=== PATIENT | female | born 1955 | race Caucasian/White ===

== ENCOUNTER 2017-01-24 05:41 | Emergency (ER) | payer BC ==
[2017-01-24 05:57] VITALS: BP 112/61
--- NOTE | 2017-01-24 06:21 | EDM.PDOC ---
[id number] Complaint: L ELBOW PAIN Time Seen by Provider: 01/24/17 06:00 Source of Information: Reports: Patient History Limitations: Reports: No Limitations - History of Present Illness INITIAL COMMENTS - FREE TEXT/NARRATIVE: 61-year-old female fell onto her left elbow last evening while carrying her grandchild. She had difficulty sleeping overnight because of the pain and allow she has near normal range of motion she's having significant discomfort. Onset: Sudden Duration: Other (Last evening) Location: Reports: Upper Extremity, Left Severity: Moderate Left Elbow Pain Score (Numeric/FACES): 7 - Related Data Allergies Allergy/AdvReac Type Severity Reaction Status Date / Time No Known Allergies Allergy Verified 01/24/17 05:57 Home Meds: Home Meds Budesonide/Formoterol Fumarate [Symbicort 160-4.5 Mcg Inhaler] 1 puff IH DAILY 01/24/17 [History] Levothyroxine Sodium [Synthroid] 150 mg PO DAILY 01/24/17 [History] Venlafaxine [Venlafaxine HCl ER] 150 mg PO DAILY 01/24/17 [History] Zolpidem [Ambien] 10 mg PO DAILY 01/24/17 [History] buPROPion HCl [Bupropion Xl] 300 mg PO DAILY 01/24/17 [History] Past Medical History Respiratory History: Reports: Asthma 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: Psychiatric History: Reports: Depression Endocrine/Metabolic History: Reports: Hypothyroidism - Past Surgical History Female Surgical History: Reports: Section Social & Family History - Tobacco Use Smoking Status *Q: Never Smoker - Caffeine Use Caffeine Use: Reports: Coffee - Recreational Drug Use Recreational Drug Use: No Review of Systems - Review of Systems Review Of Systems: See Below Respiratory: Denies: Shortness of Breath GI/Abdominal: Denies: Nausea, Vomiting Skin: Reports: Other (Some bruising and ecchymosis with slight swelling over the left elbow) Neurological: Denies: Paresthesia ED EXAM, GENERAL - Physical Exam Exam: See Below Exam Limited By: No Limitations General Appearance: Alert, No Apparent Distress Respiratory/Chest: No Respiratory Distress Extremities: Other (There is some soft tissue swelling over the olecranon of the left elbow with intense tenderness to palpation of the olecranon and moderate tenderness over the radial head.) Course - Vital Signs Last Recorded V/S: Last Vital Signs Temp 97.9 F 01/24/17 05:53 Pulse 65 01/24/17 05:53 Resp 16 01/24/17 05:53 BP 112/61 01/24/17 05:53 Pulse Ox 98 01/24/17 05:53 - Orders/Labs/Meds Orders: Active Orders 24 hr Category Date Time Status Elbow Min 3V Lt [CR] Stat Exams 01/24/17 06:13 Taken - Re-Assessments/Exams Free Text/Narrative Re-Assessment/Exam: 01/24/17 06:21 A left elbow x-ray was obtained. 01/24/17 06:47 X-ray shows no fracture. Patient will be placed on cephalexin 500 3 times daily for 7 days because of the soft tissue injury, and given 6 Vicodin for extra pain control. She will keep the wound clean and use external Geraldo wrap for support. Departure - Departure Time of Disposition: 06:53 Disposition: Home, Self-Care 01 Condition: Good Clinical Impression: Contusion of elbow, left Qualifiers: Encounter type: initial encounter Qualified Code(s): S50.02XA - Contusion of left elbow, initial encounter - Discharge Information Instructions: Elbow Contusion Referrals: Branden Hoskins MD [Primary Care Provider] - Forms: ED Department Discharge Care Plan Goals: Take antibiotic as prescribed, ibuprofen or naproxen for pain and add stronger pain medication if needed. Increase activity as tolerated and recheck at any time if not healing satisfactorily. - My Orders Last 24 Hours: My Active Orders 01/24/17 06:13 Elbow Min 3V Lt [CR] Stat - Assessment/Plan Last 24 Hours: My Active Orders 01/24/17 06:13 Elbow Min 3V Lt [CR] Stat
--- NOTE | 2017-01-26 11:36 | CR ---
Left elbow There is normal alignment. There is no fracture or joint effusion. There is evidence of a soft tissu e laceration posteriorly with subcutaneous air. No radiopaque foreign body. Impression: 1. Soft tissue laceration posteriorly. 2. Negative fracture.
== END 2017-01-24 06:55 | disposition home or self-care (01) ==
LOC: JP.ED 05:41
DX: S50.02XA Contusion of left elbow, initial encounter (principal); J45.909 Unspecified asthma, uncomplicated; F32.9 Major depressive disorder, single episode, unspecified; E03.9 Hypothyroidism, unspecified; Z79.899 Other long term (current) drug therapy; Z98.890 Other specified postprocedural states; W01.0XXA Fall on same level from slipping, tripping and stumbling without subsequent striking against object, initial encounter
CPT/HCPCS: 73080-26-LT; 73080-LT; 99284

== ENCOUNTER 2020-04-24 06:25 | Day surgery (SDC) | payer MEDICARE, BC ==
[2020-04-24] MEDS ORDERED: Sodium Chloride 0.9% 1,000 ML IV SCH (07:00)
[2020-04-24] MEDS ORDERED: fentaNYL 100 MCG/2 ML SDV ONE (07:33)
[2020-04-24] MEDS ORDERED: Propofol 200 MG/20 ML SDV ONE (07:33)
[2020-04-24] MEDS ORDERED: Midazolam 1 MG/ML 2 ML SDV ONE (07:33)
[2020-04-24 08:51] VITALS: BP 111/69; PULSE 57
--- NOTE | 2020-04-25 07:25 | OR ---
DATE OF PROCEDURE: 04/24/2020 SURGEON: Cordell Suero MD PROCEDURE: Colonoscopy. FINDINGS: Sigmoid colon polyp approximately 5 mm, completely removed using hot snare wire device. COMPLICATIONS: None. BLOOD DONOR UNIT ASSISTANT: None. ANESTHETIC: MAC. PREOPERATIVE DIAGNOSIS: Screening colonoscopy. POSTOPERATIVE DIAGNOSIS: Screening colonoscopy. RISKS: Risks, benefits, alternatives, and limitations including, but not limited to, infection, bleeding, and perforation were explained to the patient and wished to proceed. DESCRIPTION OF PROCEDURE: The patient was placed in left lateral decubitus position. A digital rectal exam was performed without abnormality. Scope was introduced and advanced atraumatically to the ileocecal valve. A photo was taken. The scope was brought back to the ascending, transverse, descending colon, and retroflexed. The aforementioned polyp was identified and completely removed. The patient had 1 to 2 diverticula. No evidence of old or new blood. No colitis. No abnormalities on retroflexion. Greater than 10 minutes were spent removing the scope. The patient tolerated the procedure well. Cordell Suero MD /[id number]
== END 2020-04-24 09:05 | disposition home or self-care (01) ==
LOC: JP.SDS 06:25
PROVIDERS: ATTEND Surgery
DX: Z12.11 Encounter for screening for malignant neoplasm of colon (principal); K63.5 Polyp of colon; K57.30 Diverticulosis of large intestine without perforation or abscess without bleeding
CPT/HCPCS: 45385; 88305; J2250; J2704; J3010; J7030

== ENCOUNTER 2021-01-10 18:54 | Emergency (ER) | payer MEDICARE, BC ==
[2021-01-10 20:01] VITALS: BP 124/84; PULSE 66
--- NOTE | 2021-01-10 20:33 | EDM.PDOC ---
ED HPI GENERAL MEDICAL PROBLEM - General Chief Complaint: Lower Extremity Injury/Pain Stated Complaint: FELL HURT LEFT FOOT Time Seen by Provider: 01/10/21 19:12 Source of Information: Reports: Patient - History of Present Illness Onset: Today Duration: Hour(s): Location: Reports: Lower Extremity, Left Quality: Reports: Sharp, Throbbing Severity: Moderate Improves with: Reports: Immobilization Worsens with: Reports: Movement (or weight bearing) Context: Reports: Other (fall at home) Associated Symptoms: Reports: No Other Symptoms Treatments LEGAL SUPPORT ASSISTANT: Reports: Splint(s) (tra wrap and walking boot) Left Feet Pain Score (Numeric/FACES): 8 - Related Data Allergies Allergy/AdvReac Type Severity Reaction Status Date / Time valacyclovir [From Valtrex] Allergy Cannot Verified 01/10/21 19:50 Remember rubbing alcohol Allergy Rash Uncoded 01/10/21 19:50 Home Meds: Home Meds Budesonide/Formoterol Fumarate [Symbicort 160-4.5 Mcg Inhaler] 2 puff IH BID 01/24/17 [History] Levothyroxine Sodium [Synthroid] 175 mcg PO DAILY 01/24/17 [History] Venlafaxine [Venlafaxine HCl ER] 150 mg PO DAILY 01/24/17 [History] Zolpidem [Ambien] 10 mg PO BEDTIME PRN 01/24/17 [History] buPROPion HCL [Bupropion Xl] 300 mg PO DAILY 01/24/17 [History] Albuterol Sulfate 3 ml INH Q6H PRN 04/20/20 [History] Albuterol Sulfate [Proventil Hfa] 2 puff INH Q6H PRN 04/20/20 [History] Budesonide 1 mg NEB Q12H PRN 04/20/20 [History] Cholecalciferol (Vitamin D3) [Vitamin D] 5,000 units PO DAILY 04/20/20 [History] Ipratropium/Albuterol Sulfate [Iprat-Albut 0.5-3(2.5) mg/3 ml] 1 vial NEB QID PRN 04/20/20 [History] Montelukast Sodium [Singulair] 10 mg PO DAILY 04/20/20 [History] hydroCHLOROthiazide [Hydrochlorothiazide] 12.5 mg PO ASDIRECTED PRN 04/20/20 [History] diphenhydrAMINE [Benadryl] 25 mg PO BEDTIME 04/24/20 [History] Past Medical History HEENT History: Reports: Allergic Rhinitis, Impaired Vision, Sinusitis, Other (See Below) Other HEENT History: seasonal allergies Respiratory History: Reports: Asthma Gastrointestinal History: Reports: Colon Polyp Genitourinary History: Reports: Other (See Below) Other Genitourinary History: rare UTI 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: Musculoskeletal History: Reports: Fracture Psychiatric History: Reports: Depression Endocrine/Metabolic History: Reports: Hypothyroidism Dermatologic History: Reports: Other (See Below) Other Dermatologic History: staph positive abcess chest; 2013, surgical intervention - Infectious Disease History Infectious Disease History: Reports: Chicken Pox, Influenza, Measles, Mononucleosis, Mumps, Novel Coronavirus, Other (See Below) Other Infectious Disease History: infected chest abcess, staph - Past Surgical History HEENT Surgical History: Reports: LASIK, Naso-Sinus Surgery GI Surgical History: Reports: Appendectomy, Colonoscopy, Polypectomy Female Surgical History: Reports: Section Musculoskeletal Surgical History: Reports: Other (See Below) Other Musculoskeletal Surgeries/Procedures:: collarbone and part of sternum removed due to staph infection Social & Family History - Family History Family Medical History: No Pertinent Family History - Tobacco Use Tobacco Use Status *Q: Never Tobacco User - Caffeine Use Caffeine Use: Reports: Coffee Other Caffeine Use: 1.5 c daily - Living Situation & Occupation 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[place], [place].) Review of Systems - Review of Systems Review Of Systems: See Below Constitutional: Reports: No Symptoms Eyes: Reports: No Symptoms Ears: Reports: No Symptoms Nose: Reports: No Symptoms Mouth/Throat: Reports: No Symptoms Respiratory: Reports: No Symptoms Cardiovascular: Reports: No Symptoms GI/Abdominal: Reports: No Symptoms Genitourinary: Reports: No Symptoms Musculoskeletal: Reports: Foot Pain (left foot), Muscle Pain (left foot) Skin: Reports: Bruising (left lateral foot) Neurological: Reports: No Symptoms Psychiatric: Reports: No Symptoms ED EXAM, GENERAL - Physical Exam Exam: See Below Exam Limited By: No Limitations General Appearance: Alert, WD/WN, No Apparent Distress, Other (neat and well groomed. pleasant and polite) Peripheral Pulses: 2+: Dorsalis Pedis (L), Dorsalis Pedis (R) Extremities: Pedal Edema (left foot edema noted to the lateral foot), Limited Range of Motion (left foot) Neurological: Alert, Oriented, Normal Cognition. No: Normal Gait (unable to bear wt to the left foot) Psychiatric: Normal Affect, Normal Mood Skin Exam: Warm, Dry, Intact, Ecchymosis (left lateral foot) ED TRAUMA EXTREMITY PROCEDURES - Splinting Left Lower Extremity Pre-Procedure NV Status: Normal Post-Procedure NV Status: Normal Splint Material: Boot Orthotic Applied & Form Fitted By: Other (Patient arrived with own personal ortho boot. applied herself) Provider Post-Splint Application NV Check: NV Status Normal, Good Position Complications: No Course - Vital Signs Last Recorded V/S: Last Vital Signs Temp 98.0 F 01/10/21 20:01 Pulse 66 01/10/21 20:01 Resp 17 01/10/21 20:01 BP 124/84 01/10/21 20:01 Pulse Ox 98 01/10/21 20:01 - Orders/Labs/Meds Orders: Active Orders 24 hr Category Date Time Status Ankle Min 3V Lt [CR] Stat Exams 01/10/21 19:52 Taken Foot Comp Min 3V Lt [CR] Stat Exams 01/10/21 19:52 Taken DME for Discharge [COMM] Urgent Oth 01/10/21 20:33 Ordered - Re-Assessments/Exams Free Text/Narrative Re-Assessment/Exam: 01/10/21 20:54 left foot fracture- 5th metatarsal and metatarsal bone fracture care discussed Orthopedic consulted at 2020- advise non- wt. bearing, place in orthopedic boot, will see next week discussed plan of care with [place]- agrees will discharge to home with pain medication, crutches and in orthopedic boot. Departure - Departure Time of Disposition: 20:56 Disposition: Home, Self-Care 01 Condition: Good Clinical Impression: Fracture of foot, Metatarsal bone fracture - Discharge Information *PRESCRIPTION DRUG MONITORING PROGRAM REVIEWED*: Not Applicable *COPY OF PRESCRIPTION DRUG MONITORING REPORT IN PATIENT MARISELA: Not Applicable Instructions: Metatarsal Fracture Referrals: Roslyn De La Cruz PA [Primary Care Provider] - Forms: ED Department Discharge, ED Return to Work/School Form Care Plan Goals: Left foot fracture- metatarsal bones x 2 -Hydrocodone 5-325 mg one every 4 to 6 hours prn pain #12 -Motrin 600mg every 6 to 8 hours as needed for pain -ice to area of swelling- intermittently for next two days -elevate foot for next two days -tra wrap and boot - may remove for shower or bath -no wt. bearing until evaluation by Orthopedics -Orthopedic consult early next week - Orthopedics Clinic will call tomorrow with appointment time. -work excuse for one week or longer as recommended by Orthopedic Provider Return to ER for any increased pain, fever, nausea, vomiting, rash, or any concerns. Sepsis Event Note (ED) - Evaluation Sepsis Screening Result: No Definite Risk - Focused Exam Vital Signs: Vital Signs Temp Pulse Resp BP Pulse Ox 01/10/21 20:01 98.0 F 66 17 124/84 98 01/10/21 20:00 98.0 F 66 17 124/84 98 - Problem List & Annotations (1) Fracture of foot SNOMED Code(s): 97111908 Code(s): S92.909A - UNSP FRACTURE OF UNSP FOOT, INIT ENCNTR FOR CLOSED FRACTURE Status: Acute Priority: High Current Visit: Yes (2) Metatarsal bone fracture SNOMED Code(s): 018510363 Code(s): S92.309A - FRACTURE OF UNSP METATARSAL BONE(S), UNSP FOOT, INIT Status: Acute Priority: High Current Visit: Yes - Problem List Review Problem List Initiated/Reviewed/Updated: Yes - My Orders Last 24 Hours: My Active Orders 01/10/21 19:52 Ankle Min 3V Lt [CR] Stat Foot Comp Min 3V Lt [CR] Stat 01/10/21 20:33 DME for Discharge [COMM] Urgent - Assessment/Plan Last 24 Hours: My Active Orders 01/10/21 19:52 Ankle Min 3V Lt [CR] Stat Foot Comp Min 3V Lt [CR] Stat 01/10/21 20:33 DME for Discharge [COMM] Urgent Plan: Left foot fracture- metatarsal bones x 2 -Hydrocodone 5-325 mg one every 4 to 6 hours prn pain #12 -Motrin 600mg every 6 to 8 hours as needed for pain -ice to area of swelling- intermittently for next two days -elevate foot for next two days -tra wrap and boot - may remove for shower or bath -no wt. bearing until evaluation by Orthopedics -Orthopedic consult early next week - Orthopedics Clinic will call tomorrow with appointment time. -work excuse for one week or longer as recommended by Orthopedic Provider Return to ER for any increased pain, fever, nausea, vomiting, rash, or any concerns.
--- NOTE | 2021-01-11 09:01 | CR ---
Foot Comp Min 3V Lt, Ankle Min 3V Lt CLINICAL HISTORY: Lateral pain FINDINGS: There is a transverse fracture through the base of the fifth metatarsal. IMPRESSION: Fracture fifth metatarsal Foot Comp Min 3V Lt, Ankle Min 3V Lt CLINICAL HISTORY: Lateral pain FINDINGS: The soft tissues are swollen laterally. No acute fracture or dislocation is noted. Ankle mortise is intact. Fifth metatarsal fracture seen on foot series. Impression: No ankle fracture
== END 2021-01-10 20:59 | disposition home or self-care (01) ==
LOC: JP.ED 18:54
DX: S92.352A Displaced fracture of fifth metatarsal bone, left foot, initial encounter for closed fracture (principal); J45.909 Unspecified asthma, uncomplicated; E03.9 Hypothyroidism, unspecified; Z88.8 Allergy status to other drugs, medicaments and biological substances; Z79.899 Other long term (current) drug therapy; W22.8XXA Striking against or struck by other objects, initial encounter
CPT/HCPCS: 73610-26-LT; 73610-LT; 73630-26-LT; 73630-LT; 99283-25

== ENCOUNTER 2021-11-30 23:48 | Inpatient (IN) | payer MEDICARE, BC ==
[2021-11-30] MEDS ORDERED: Sodium Chloride 0.9% 10 ML Syringe FLUSH PRN (23:51)
[2021-12-01 00:33] LABS: TROPONIN I HIGH SENSITIVITY 7.3 pg/mL (<=60.3)
[2021-12-01] MEDS: Dexamethasone 4 MG/ML SDV IVPUSH SCH ×4 (01:17→19:39)
[2021-12-01] MEDS ORDERED: LORazepam 2 MG/ML SDV IVPUSH ONE (01:17)
[2021-12-01] MEDS ORDERED: Sodium Chloride 0.9% 100 ML ONE (01:42)
[2021-12-01] MEDS: levETIRAcetam 500 MG/5 ML Solution ML 473 ml Bottle PO SCH ×4 (01:54→21:01)
[2021-12-01] MEDS ORDERED: Albuterol 0.083% 2.5 MG/3 ML Neb Soln INH PRN (03:18)
[2021-12-01] MEDS ORDERED: Ondansetron 4 MG/2 ML SDV IV PRN (03:18)
[2021-12-01] MEDS ORDERED: Budesonide 0.5 MG/2 ML Neb Susp NEB PRN (03:18)
[2021-12-01] MEDS ORDERED: Hydrochlorothiazide 12.5 MG Cap PO PRN (03:18)
[2021-12-01] MEDS ORDERED: Sodium Chloride 0.9% 10 ML Syringe FLUSH PRN (03:18)
[2021-12-01] MEDS ORDERED: Albuterol 8 GM Inhaler INH PRN (03:18)
[2021-12-01] MEDS ORDERED: Sodium Chloride 0.9% 1,000 ML IV SCH (03:18)
[2021-12-01] MEDS: Albuterol/Ipratropium 3.0-0.5 MG/3 ML Neb Soln NEB SCH ×5 (03:44→21:07)
[2021-12-01] MEDS ORDERED: Cephalexin 250 MG Cap PO SCH (06:00)
[2021-12-01] MEDS ORDERED: Formoterol/Mometasone 200-5 MCG 8.8 GM Inhaler IH SCH (07:00)
[2021-12-01] MEDS: Levothyroxine 25 MCG Tab PO SCH (07:43)
[2021-12-01] MEDS: Levothyroxine 100 MCG Tab PO SCH (07:43)
[2021-12-01] MEDS: Montelukast 10 MG Tab PO SCH (08:24)
[2021-12-01] MEDS: atorvaSTATin 20 MG Tab PO SCH (08:24)
[2021-12-01] MEDS: buPROPion 150 MG Tab.ER PO SCH (08:24)
[2021-12-01] MEDS: Aspirin 81 MG Tab.Chew PO SCH (08:24)
[2021-12-01] MEDS: Venlafaxine 75 MG Cap.ER PO SCH (08:28)
[2021-12-01] MEDS: Acetaminophen 325 MG Tab PO PRN ×3 (09:31→19:43)
[2021-12-01] MEDS: Cephalexin 250 MG Cap PO SCH ×3 (12:00→21:08)
[2021-12-01] MEDS: Formoterol/Mometasone 200-5 MCG 8.8 GM Inhaler IH SCH (21:07)
[2021-12-01] MEDS: Zolpidem 5 MG Tab PO PRN (21:11)
[2021-12-02] MEDS: Dexamethasone 4 MG/ML SDV IVPUSH SCH ×4 (01:48→19:53)
[2021-12-02] MEDS: Albuterol/Ipratropium 3.0-0.5 MG/3 ML Neb Soln NEB SCH ×4 (07:12→20:28)
[2021-12-02] MEDS: Formoterol/Mometasone 200-5 MCG 8.8 GM Inhaler IH SCH ×2 (07:12→20:28)
[2021-12-02] MEDS: Levothyroxine 25 MCG Tab PO SCH (07:23)
[2021-12-02] MEDS: Levothyroxine 100 MCG Tab PO SCH (07:25)
[2021-12-02] MEDS: Cephalexin 250 MG Cap PO SCH (07:25)
[2021-12-02] MEDS: Montelukast 10 MG Tab PO SCH (08:51)
[2021-12-02] MEDS: Aspirin 81 MG Tab.Chew PO SCH (08:51)
[2021-12-02] MEDS: buPROPion 150 MG Tab.ER PO SCH (08:51)
[2021-12-02] MEDS: levETIRAcetam 500 MG/5 ML Solution ML 473 ml Bottle PO SCH ×2 (08:52→19:45)
[2021-12-02] MEDS: atorvaSTATin 20 MG Tab PO SCH (08:52)
[2021-12-02] MEDS: Venlafaxine 75 MG Cap.ER PO SCH (10:37)
[2021-12-02] MEDS ORDERED: busPIRone 5 MG Tab PO PRN (12:06)
[2021-12-02] MEDS: Acetaminophen 325 MG Tab PO PRN (20:04)
[2021-12-02] MEDS: Zolpidem 5 MG Tab PO PRN (20:05)
[2021-12-03] MEDS: Dexamethasone 4 MG/ML SDV IVPUSH SCH ×4 (01:27→19:31)
[2021-12-03] MEDS: Formoterol/Mometasone 200-5 MCG 8.8 GM Inhaler IH SCH ×2 (06:22→20:05)
[2021-12-03] MEDS: Albuterol/Ipratropium 3.0-0.5 MG/3 ML Neb Soln NEB SCH ×4 (06:22→20:06)
[2021-12-03] MEDS: Levothyroxine 25 MCG Tab PO SCH (07:49)
[2021-12-03] MEDS: Levothyroxine 100 MCG Tab PO SCH (07:57)
[2021-12-03] MEDS: atorvaSTATin 20 MG Tab PO SCH (09:27)
[2021-12-03] MEDS: buPROPion 150 MG Tab.ER PO SCH (09:28)
[2021-12-03] MEDS: Aspirin 81 MG Tab.Chew PO SCH (09:28)
[2021-12-03] MEDS: Venlafaxine 75 MG Cap.ER PO SCH (09:28)
[2021-12-03] MEDS: Acetaminophen 325 MG Tab PO PRN (09:28)
[2021-12-03] MEDS: levETIRAcetam 500 MG/5 ML Solution ML 473 ml Bottle PO SCH ×3 (09:28→20:04)
[2021-12-03] MEDS: Montelukast 10 MG Tab PO SCH (09:28)
[2021-12-03] MEDS: Zolpidem 5 MG Tab PO PRN (21:03)
[2021-12-04] MEDS: Dexamethasone 4 MG/ML SDV IVPUSH SCH ×2 (01:02→07:06)
[2021-12-04] MEDS: Formoterol/Mometasone 200-5 MCG 8.8 GM Inhaler IH SCH (07:00)
[2021-12-04] MEDS: Albuterol/Ipratropium 3.0-0.5 MG/3 ML Neb Soln NEB SCH ×2 (07:00→10:37)
[2021-12-04] MEDS: Venlafaxine 75 MG Cap.ER PO SCH (08:13)
[2021-12-04] MEDS: Aspirin 81 MG Tab.Chew PO SCH (08:13)
[2021-12-04] MEDS: Montelukast 10 MG Tab PO SCH (08:14)
[2021-12-04] MEDS: atorvaSTATin 20 MG Tab PO SCH (08:14)
[2021-12-04] MEDS: levETIRAcetam 500 MG/5 ML Solution ML 473 ml Bottle PO SCH (08:14)
[2021-12-04] MEDS: buPROPion 150 MG Tab.ER PO SCH (08:14)
[2021-12-04 11:06] VITALS: PULSE 67
[2021-12-04 11:09] VITALS: BP 145/88
== END 2021-12-04 12:20 | disposition home or self-care (01) | DRG 54 ==
LOC: JP.ED 23:48 → JP.MS 12-01 02:14
PROVIDERS: ADMIT Hospitalist; ATTEND Internal Medicine
PROC: 3E0333Z Introduction of Anti-inflammatory into Peripheral Vein, Percutaneous Approach (ICD-10-PCS; principal; 2021-12-01)
DX: I63.40 Cerebral infarction due to embolism of unspecified cerebral artery (principal); C71.1 Malignant neoplasm of frontal lobe; C71.9 Malignant neoplasm of brain, unspecified; G93.6 Cerebral edema; R29.6 Repeated falls; H54.7 Unspecified visual loss; E78.00 Pure hypercholesterolemia, unspecified; J45.909 Unspecified asthma, uncomplicated; Z86.16 Personal history of COVID-19; F32.A Depression, unspecified; E03.9 Hypothyroidism, unspecified; Z79.51 Long term (current) use of inhaled steroids; W19.XXXA Unspecified fall, initial encounter; Z79.890 Hormone replacement therapy; Z79.899 Other long term (current) drug therapy; Z86.19 Personal history of other infectious and parasitic diseases; Z90.49 Acquired absence of other specified parts of digestive tract; Z86.010 Personal history of colon polyps; Z87.440 Personal history of urinary (tract) infections; Z86.73 Personal history of transient ischemic attack (TIA), and cerebral infarction without residual deficits; Z79.82 Long term (current) use of aspirin; Z88.8 Allergy status to other drugs, medicaments and biological substances; Z79.52 Long term (current) use of systemic steroids; Z20.822 Contact with and (suspected) exposure to COVID-19
CPT/HCPCS: 36415; 70450; 80053; 82947; 84484; 85025; 85610; 85730; 93005; 96374; 96375; 99285; A9270; J1100; J1953; J2060; J3490 ×2; U0002; 93010; 94640; 97112-GP; 97162-GP; J7620

== ENCOUNTER 2023-02-12 06:16 | Day surgery (SDC) | payer MEDICARE, BC ==
[2023-02-12] MEDS ORDERED: Sodium Chloride 0.9% 10 ML Syringe FLUSH PRN (07:30)
[2023-02-12 08:36] VITALS: BP 137/88; PULSE 78
== END 2023-02-12 08:39 | disposition home or self-care (01) ==
LOC: JP.SDS 06:16
PROVIDERS: ATTEND Ophthalmology
DX: H26.9 Unspecified cataract (principal); Z91.048 Other nonmedicinal substance allergy status; Z88.8 Allergy status to other drugs, medicaments and biological substances; Z79.899 Other long term (current) drug therapy
CPT/HCPCS: 66984; J3490

== ENCOUNTER 2023-02-26 07:29 | Day surgery (SDC) | payer MEDICARE, BC ==
[~2023-02-26 07:29] MED LIST: Sodium Chloride 0.9% 10 ML Syringe FLUSH PRN
[2023-02-26] MEDS ORDERED: Sodium Chloride 0.9% 10 ML Syringe FLUSH PRN (07:45)
[2023-02-26 08:39] VITALS: BP 138/87; PULSE 72
== END 2023-02-26 08:44 | disposition home or self-care (01) ==
LOC: JP.SDS 07:29
PROVIDERS: ATTEND Ophthalmology
DX: H26.9 Unspecified cataract (principal); J45.909 Unspecified asthma, uncomplicated; F32.A Depression, unspecified; E03.9 Hypothyroidism, unspecified; Z88.8 Allergy status to other drugs, medicaments and biological substances
CPT/HCPCS: 66984; J3490; V2632